=== PATIENT | female | born 1950 | race Hispanic/Latino ===

== ENCOUNTER 2017-09-08 15:15 | Emergency (ER) | payer MEDICARE ==
[2017-09-08 16:25] LABS: BASOPHILS % (AUTO) 0.7 % (0.0-5.0); EOSINOPHILS % (AUTO) 2.6 % (0.0-8.0); HEMATOCRIT 36.4 % (36-48); LYMPHOCYTES % (AUTO) 23.1 % (21.0-51.0); MEAN CORPUSCULAR HEMOGLOBIN 28.1 pg (27.0-33.0); MEAN CORPUSCULAR HGB CONC 33.3 g/dL (32.0-36.0); MEAN CORPUSCULAR VOLUME 84.4 fL (79-99); MONOCYTES % (AUTO) 7.8 % (3.0-13.0); NEUTROPHILS % (AUTO) 65.8 % (40.0-77.0); PLATELET COUNT (AUTO) 278 K/uL (130-400); RED BLOOD CELL COUNT(AUTO) 4.31 MIL/uL (4.00-5.50); WHITE BLOOD COUNT (AUTO) 6.9 K/uL (4.8-10.8)
[2017-09-08] MEDS ORDERED: ONDANSETRON HCL 4 MG/2 ML VIAL ONE (16:27)
[2017-09-08] MEDS ORDERED: HYOSCYAMINE SULFATE 0.125 MG TAB.SUBL SL ONE (16:28)
[2017-09-08] MEDS ORDERED: SODIUM CHLORIDE 0.9% 500ML 500 ML IV ONE (16:28)
[2017-09-08 16:30] LABS: APPEARANCE,URINE Clear (CLEAR); BILIRUBIN,URINE Negative (NEGATIVE); COLOR,URINE Yellow (YELLOW); GLUCOSE, URINE (UA) Negative (NEGATIVE); KETONES,URINE 15 mg/dL (NEGATIVE); LEUKOCYTE ESTERASE ,URINE Trace (NEGATIVE); NITRATE,URINE Negative (NEGATIVE); OCCULT BLOOD,URINE Negative (NEGATIVE); PROTEIN,URINE Negative (NEGATIVE); UROBILINOGEN,URINE 0.2 mg/dL (0.2-1.0)
[2017-09-08 16:34] LABS: CREATININE 0.7 mg/dL (0.5-1.5); POTASSIUM 3.5 mmol/L (3.5-5.1)
[2017-09-08 16:39] LABS: ALBUMIN 4.2 g/dL (3.5-5.0); BILIRUBIN,TOTAL 0.5 mg/dL (0.2-1.0); TOTAL PROTEIN, SERUM 8.1 g/dL (6.0-8.3)
[2017-09-08 16:45] LABS: BACTERIA,URINE None Seen /HPF (None Seen); RBC,URINE None Seen /HPF (0-1); WBC,URINE 0-1 /HPF (0-1)
[2017-09-08 16:46] LABS: SQUAMOUS EPITHELIAL CELL,UR 0-2 /HPF (0-2); TRANSITIONAL EPI CELLS,URINE Rare /HPF (None Seen)
[2017-09-08] MEDS ORDERED: SIMETHICONE 80 MG TAB.CHEW ONE (19:12)
== END 2017-09-08 19:18 | disposition home or self-care (01) ==
LOC: EDH 15:15
DX: R10.9 Unspecified abdominal pain (principal); R42 Dizziness and giddiness; E11.9 Type 2 diabetes mellitus without complications; E78.5 Hyperlipidemia, unspecified; Z90.710 Acquired absence of both cervix and uterus
CPT/HCPCS: 36415; 74176; 80053; 81001; 83690; 85025; 96374; 99285; J2405; J7040

== ENCOUNTER → 2022-03-08 | Outpatient (CLI) | payer OTHER, MEDICARE | END | disposition home or self-care (01) | LOC: SHCH 08:26 | PROVIDERS: ATTEND Internal Medicine | DX: R09.81 Nasal congestion (principal); F50.89 Other specified eating disorder | CPT/HCPCS: 93880 ==

== ENCOUNTER 2022-03-28 11:00 | Observation (INO) | payer OTHER, MEDICARE ==
[~2022-03-28] VITALS: Ht 157.5 cm; Wt 73.5 kg
[2022-03-28 11:40] LABS: BASOPHILS % (AUTO) 1.1 % (0.0-5.0); EOSINOPHILS % (AUTO) 5.6 % (0.0-8.0); HEMATOCRIT 37.2 % (36-48); LYMPHOCYTES % (AUTO) 28.7 % (21.0-51.0); MEAN CORPUSCULAR HEMOGLOBIN 28.8 pg (27.0-33.0); MEAN CORPUSCULAR HGB CONC 32.5 g/dL (32.0-36.0); MEAN CORPUSCULAR VOLUME 88.6 fL (79-99); MONOCYTES % (AUTO) 7.6 % (3.0-13.0); NEUTROPHILS % (AUTO) 56.6 % (40.0-77.0); PLATELET COUNT (AUTO) 219 K/uL (130-400); RED CELL DISTRIBUTION WIDTH 13.4 % (11.0-15.5); WHITE BLOOD COUNT (AUTO) 5.4 K/uL (4.8-10.8)
[2022-03-28 11:42] LABS: APPEARANCE,URINE CLEAR (CLEAR); BILIRUBIN,URINE NEGATIVE (NEGATIVE); COLOR,URINE COLORLESS (YELLOW); GLUCOSE, URINE (UA) NEGATIVE (NEGATIVE); KETONES,URINE NEGATIVE (NEGATIVE); LEUKOCYTE ESTERASE ,URINE 25 Leu/uL (NEGATIVE); NITRATE,URINE NEGATIVE (NEGATIVE); OCCULT BLOOD,URINE NEGATIVE (NEGATIVE); PROTEIN,URINE NEGATIVE (NEGATIVE); UROBILINOGEN,URINE 0.2 mg/dL (0.2-1.0)
[2022-03-28 11:43] LABS: BACTERIA,URINE RARE /HPF (None Seen); RBC,URINE 0-1 /HPF (0-1); SQUAMOUS EPITHELIAL CELL,UR RARE /HPF (0-2)
[2022-03-28 11:52] LABS: PROTHROMBIN TIME 10.9 SEC (9.6-11.6)
[2022-03-28 11:54] LABS: PARTIAL THROMBOPLASTIN TIME 28.9 SEC (26.3-35.5)
[2022-03-28 12:04] LABS: ALANINE AMINOTRANSFERASE 13 U/L (12-78); ALBUMIN 4.2 g/dL (3.5-5.0); ASPARTATE AMINOTRANSFERASE 22 U/L (10-37); CARBON DIOXIDE 29 mmol/L (21-32); CHLORIDE 103 mmol/L (101-111); CREATININE 0.9 mg/dL (0.5-1.5); GLOMERULAR FILTR. RATE CALC 65 mL/min (>60); GLUCOSE,RANDOM 101 mg/dL (70-105); SODIUM SERUM 141 mmol/L (136-145); TOTAL PROTEIN, SERUM 8.1 g/dL (6.0-8.3); UREA NITROGEN, BLOOD 16 mg/dL (7-18)
[2022-03-28 12:05] LABS: CRP QUANTITATIVE < 2.00 mg/L (0.00-9.0)
[2022-03-29 09:57] VITALS: BP 152/71
[2022-03-29] MEDS ORDERED: NIFE30TA98 PO (10:27)
[2022-03-29] MEDS ORDERED: LEVO88CA4 PO (10:27)
[2022-03-29] MEDS ORDERED: SERT-440 PO (10:27)
[2022-03-29] MEDS ORDERED: OLME40TA18 PO (10:27)
[2022-03-29] MEDS ORDERED: ATOR40TA71 PO (10:27)
[2022-03-30] VITALS (26 sets, daily range): BP systolic 140–173; BP diastolic 63–84
[2022-03-30] MEDS ORDERED: KETOROLAC 30MG VIAL (30MG/ML) ONE (04:37)
[2022-03-30] MEDS ORDERED: ROPIVACAINE 0.5% 5MG/ML 30ML IJ ONE ×3 (04:37→07:50)
[2022-03-30] MEDS ORDERED: TRANEXAMIC ACID 1000MG/10ML ONE (04:37)
[2022-03-30] MEDS: CEFAZOLIN SODIUM 2 GM VIAL IVPB SCH (05:00)
[2022-03-30] MEDS ORDERED: 0.9%NACL 1000ML 1,000 ML IV ONE (06:11)
[2022-03-30] MEDS ORDERED: LIDOCAINE PF 100MG/5ML (2%) SYRINGE 5ML ONE (06:48)
[2022-03-30] MEDS ORDERED: PHENYLEPHRINE HCL 10 MG/ML 1ML VIAL IV ONE (06:49)
[2022-03-30] MEDS ORDERED: PROPOFOL 10 MG/ML 20ML VIAL IV ONE (06:49)
[2022-03-30] MEDS ORDERED: MIDAZOLAM HCL 1 MG/ML 2ML VIAL ONE (06:49)
[2022-03-30] MEDS ORDERED: ROCURONIUM 10MG/1ML SYR 10 MG/ML ML ONE (06:49)
[2022-03-30] MEDS ORDERED: FENTANYL CITRATE PF 50 MCG/1 ML 2ML VIAL ONE (06:50)
[2022-03-30] MEDS ORDERED: CEFAZOLIN SODIUM 2 GM VIAL IVPB ONE (07:15)
[2022-03-30] MEDS ORDERED: TRANEXAMIC ACID 1000MG/10ML IV ONE (07:29)
[2022-03-30] MEDS ORDERED: ONDANSETRON 4MG INJ ONE (07:48)
[2022-03-30] MEDS ORDERED: NEOSTIGMINE 5MG/5ML SYR IV ONE (07:49)
[2022-03-30] MEDS ORDERED: GLYCOPYRROLATE 1 MG/5 ML SYRINGE ONE (07:49)
[2022-03-30] MEDS ORDERED: KETOROLAC 30MG VIAL (30MG/ML) IVP ONE (07:51)
[2022-03-30] MEDS ORDERED: KCL 20 MEQ ERTAB PO PRN (09:00)
[2022-03-30] MEDS ORDERED: FERROUS FUMARATE 324 MG TABLET PO PRN (09:00)
[2022-03-30] MEDS ORDERED: POTASSIUM CHLORIDE 20MEQ/100ML 100 ML IV PRN (09:00)
[2022-03-30] MEDS ORDERED: CYCLOBENZAPRINE HCL 10 MG TABLET PO PRN (09:00)
[2022-03-30] MEDS ORDERED: LIDOCAINE HCL-MPF 1% 2ML VIAL IV PRN (09:00)
[2022-03-30] MEDS ORDERED: POTASSIUM CHLORIDE 10% ELIXIR 20 MEQ/15 ML UDCUP PO PRN (09:00)
[2022-03-30] MEDS ORDERED: CALCIUM CARB 500MG PO PRN (09:00)
[2022-03-30] MEDS ORDERED: ONDANSETRON 4MG INJ IVP PRN (09:00)
[2022-03-30] MEDS ORDERED: MEPERIDINE-PF 25 MG/ML SYG ONE (09:18)
[2022-03-30] MEDS: GABAPENTIN 100 MG CAPSULE PO SCH ×3 (10:12→20:51)
[2022-03-30] MEDS: POLYETHYLENE GLYCOL 3350 17 GM POWD.PACK PO SCH (10:12)
[2022-03-30] MEDS: ASPIRIN 325MG TAB PO SCH (10:12)
[2022-03-30] MEDS: KETOROLAC 15MG/ML VIAL (15MG/ML) IV SCH ×2 (10:13→16:44)
[2022-03-30] MEDS: 0.9%NACL 1000ML 1,000 ML IV SCH ×2 (10:16→19:00)
[2022-03-30] MEDS ORDERED: ATORVASTATIN 40 MG TABLET PO SCH (10:48)
[2022-03-30] MEDS: NIFEDIPINE ER 30 MG TAB PO SCH ×2 (10:49→20:50)
[2022-03-30] MEDS: LOSARTAN 100 MG TABLET PO SCH (10:50)
[2022-03-30] MEDS: CEFAZOLIN SODIUM 1 GM VIAL IVP SCH ×2 (14:20→20:51)
[2022-03-30] MEDS: HYDROCODONE/ACETAMINOPHEN 5/325 MG TAB PO PRN (23:25)
[2022-03-31] MEDS: KETOROLAC 15MG/ML VIAL (15MG/ML) IV SCH (00:25)
[2022-03-31] MEDS: TRAMADOL HCL 50 MG TABLET PO PRN ×2 (03:06→12:44)
[2022-03-31] MEDS: CEFAZOLIN SODIUM 2 GM VIAL IVPB SCH (04:08)
[2022-03-31 04:10] VITALS: BP 122/52
[2022-03-31 04:50] LABS: HEMATOCRIT 30.5 % (36-48); MEAN CORPUSCULAR HEMOGLOBIN 28.2 pg (27.0-33.0); MEAN CORPUSCULAR HGB CONC 32.1 g/dL (32.0-36.0); MEAN CORPUSCULAR VOLUME 87.9 fL (79-99); RED BLOOD CELL COUNT(AUTO) 3.47 MIL/uL (4.00-5.50); RED CELL DISTRIBUTION WIDTH 13.4 % (11.0-15.5); WHITE BLOOD COUNT (AUTO) 10.9 K/uL (4.8-10.8)
[2022-03-31 05:00] LABS: CREATININE 0.8 mg/dL (0.5-1.5); POTASSIUM 3.5 mmol/L (3.5-5.1)
[2022-03-31] MEDS: 0.9%NACL 1000ML 1,000 ML IV SCH (05:00)
[2022-03-31] MEDS: LEVOTHYROXINE 88 MCG TABLET PO SCH (05:57)
[2022-03-31 08:00] VITALS: BP 138/65
[2022-03-31] MEDS: GABAPENTIN 100 MG CAPSULE PO SCH ×3 (08:31→21:21)
[2022-03-31] MEDS: ASPIRIN 325MG TAB PO SCH (08:32)
[2022-03-31] MEDS: HYDROCODONE/ACETAMINOPHEN 5/325 MG TAB PO PRN (08:33)
[2022-03-31] MEDS: LOSARTAN 100 MG TABLET PO SCH (08:33)
[2022-03-31] MEDS: NIFEDIPINE ER 30 MG TAB PO SCH ×2 (08:33→21:21)
[2022-03-31] MEDS: POLYETHYLENE GLYCOL 3350 17 GM POWD.PACK PO SCH (08:33)
[2022-03-31 12:00] VITALS: BP 168/72
[2022-03-31] MEDS: SERTRALINE HCL 50 MG TABLET PO SCH (12:44)
[2022-03-31 16:00] VITALS: BP 141/65
[2022-03-31 20:12] VITALS: BP 135/70
[2022-03-31] MEDS ORDERED: ATORVASTATIN 40 MG TABLET PO SCH (21:00)
[2022-03-31 23:25] VITALS: BP 138/66
[2022-04-01] MEDS: HYDROCODONE/ACETAMINOPHEN 5/325 MG TAB PO PRN (01:54)
[2022-04-01] MEDS: CEFAZOLIN SODIUM 2 GM VIAL IVPB SCH (04:09)
[2022-04-01 05:00] VITALS: BP 147/66
[2022-04-01] MEDS: LEVOTHYROXINE 88 MCG TABLET PO SCH (06:17)
[2022-04-01 08:00] VITALS: BP 108/55
[2022-04-01] MEDS: TRAMADOL HCL 50 MG TABLET PO PRN ×2 (08:21→18:07)
[2022-04-01] MEDS: GABAPENTIN 100 MG CAPSULE PO SCH (08:22)
[2022-04-01] MEDS: LOSARTAN 100 MG TABLET PO SCH (11:50)
[2022-04-01] MEDS: ASPIRIN 325MG TAB PO SCH (11:50)
[2022-04-01] MEDS: NIFEDIPINE ER 30 MG TAB PO SCH (11:50)
[2022-04-01] MEDS: SERTRALINE HCL 50 MG TABLET PO SCH (11:50)
[2022-04-01] MEDS: POLYETHYLENE GLYCOL 3350 17 GM POWD.PACK PO SCH (11:53)
[2022-04-01 12:02] VITALS: BP 143/62
[2022-04-01] MEDS ORDERED: DOCU-116 PO (15:54)
[2022-04-01] MEDS ORDERED: CYCL-309 PO (15:54)
[2022-04-01] MEDS ORDERED: GABA100C PO (15:54)
[2022-04-01] MEDS ORDERED: HYDR-4060 PO (15:54)
[2022-04-01] MEDS ORDERED: ASPI-1026 PO (15:54)
[2022-04-01 16:33] VITALS: BP 129/58
[2022-04-02] MEDS ORDERED: BISACODYL 10 MG SUPP.RECT RC PRN (09:00)
== END 2022-04-01 18:20 | disposition home or self-care (01) ==
LOC: EDSTATUS 11:00 → DAHIP 03-30 05:59 → 4CH 03-30 09:41 → PREOBSVTOIN 03-30 09:51 → EDSTATUS 03-30 11:00
PROVIDERS: ADMIT Student in an Organized Health Care Education/Training Program; ATTEND Student in an Organized Health Care Education/Training Program
DX: M17.11 Unilateral primary osteoarthritis, right knee (principal); Z20.822 Contact with and (suspected) exposure to COVID-19; M21.061 Valgus deformity, not elsewhere classified, right knee; M25.561 Pain in right knee; I10 Essential (primary) hypertension; E78.5 Hyperlipidemia, unspecified; E03.9 Hypothyroidism, unspecified; D62 Acute posthemorrhagic anemia; Z79.899 Other long term (current) drug therapy; Z98.890 Other specified postprocedural states; Z79.82 Long term (current) use of aspirin
CPT/HCPCS: 80053; 85025; 85610; 85730; 87088; 84134; 86140; 87426; 81001; 36415 ×2; 87641; 27447; 97039 ×6; 96374; 96376; 96375; 87077; 87186; 82948 ×12; 73560; 97161; 80048; 85027; 97116 ×4; 97530; G0378 ×55; G0379; A4215 ×2; J3010; J0690 ×4; J3490 ×3; J2710; J7030; J2001; J2250; J2704; J2405; J1885 ×4; J2175; J2795 ×3; J2370; G0168; A4649 ×4; A4930; C1776; A6255; A5120; A4223; A4222; A4221; A4663